=== PATIENT | male | born 1960 | race Caucasian/White ===

== ENCOUNTER 2022-02-02 12:14 | Emergency (ER) | payer MEDICAID ==
[2022-02-02 13:21] LABS: HEMOGLOBIN 12.3 gm/dl (14.0-17.5); RED BLOOD COUNT 4.61 M/UL (4.20-5.50); WHITE BLOOD COUNT 8.4 K/UL (4.5-11.0)
[2022-02-02 14:01] LABS: BUN/CREATININE RATIO 17 (0-10)
[2022-02-02] MEDS ORDERED: HYDROCODON-ACE1 EAC2 PO (17:41)
== END 2022-02-02 17:56 | disposition home or self-care (01) ==
LOC: ER1 12:14
PROVIDERS: Physician Assistant
DX: S22.42XA Multiple fractures of ribs, left side, initial encounter for closed fracture (principal); S00.83XA Contusion of other part of head, initial encounter; S39.012A Strain of muscle, fascia and tendon of lower back, initial encounter; S16.1XXA Strain of muscle, fascia and tendon at neck level, initial encounter; S39.91XA Unspecified injury of abdomen, initial encounter; I10 Essential (primary) hypertension; F17.200 Nicotine dependence, unspecified, uncomplicated; Y04.8XXA Assault by other bodily force, initial encounter; Y92.009 Unspecified place in unspecified non-institutional (private) residence as the place of occurrence of the external cause
CPT/HCPCS: 70450; 70486; 71111; 72100; 72125; 80053; 81001; 83690; 85025; 99284; Q9967